=== PATIENT | female | born 1980 | race Caucasian/White ===

== ENCOUNTER → 2017-04-14 | Outpatient (CLI) | payer BC ==
[~2017-04-14] MED LIST: ACET-1311 PO; IBUP600T44 PO; PRENTAB26 PO
--- NOTE | 2017-04-14 18:01 | DIAGNOSTIC IMAGING REPORT ---
RIGHT HAND 3 VIEWS CLINICAL HISTORY: Right thumb pain. No reported history of trauma. FINDINGS: 3 views of the right hand are obtained. No prior studies are available for comparison at the time of dictation. The skeletal structures are well mineralized. There is a curvilinear ossific density seen adjacent to the base of the first metacarpal. No additional findings are concerning for acute fracture. The joint spaces of the hand are well-maintained. No significant soft tissue edema is identified. IMPRESSION: 1. There is a curvilinear ossific density seen adjacent to the base of the first metacarpal. This is of indeterminant significance, and could represent an avulsion fracture less likely calcified tendinous structure. Clinical correlation will be required. 2. No additional abnormality is identified. Electronically signed by: David Cameron M.D. 04/14/2017 6:00 PM Dictated Date/Time: 04/14/2017 5:57 PM
== END | disposition home or self-care (01) ==
LOC: C.RAD 17:03
PROVIDERS: ATTEND Physician Assistant Medical
DX: M79.644 Pain in right finger(s) (principal)